=== PATIENT | female | born 1965 | race Caucasian/White ===

== ENCOUNTER → 2019-12-31 09:25 | Outpatient (CLI) | payer OTHER, SELFPAY ==
--- NOTE | ~2019-12-31 | DEXA_ITS ---
Bone Density Report Name: Molly Rodriguez Age: 54 Sex: Female Ethnicity: White Date of : 1965 Indication: osteopenia; monitoring treatment; postmenopausal Referring Provider: Griselda Montelongo Study: Bone densitometry was performed. Exam Date: December 31, 2019 Accession number: [id number] Bone Density: Region BMD T-score Z-score Classification AP Spine (L1-L4) 0.966 -0.7 0.4 Normal Femoral Neck (Left) 0.692 -1.4 -0.3 Osteopenia Total Hip (Left) 0.762 -1.5 -0.7 Osteopenia Femoral Neck (Right) 0.704 -1.3 -0.2 Osteopenia Total Hip (Right) 0.782 -1.3 -0.6 Osteopenia Total Hip Mean 0.772 -1.4 -0.7 Osteopenia World Health Organization criteria for BMD impression classify patients as: Normal (T-score at or above -1.0), Osteopenia (T-score between -1.0 and -2.5), or Osteoporosis (T-score at or below -2.5). 10-year Fracture Risk: FRAX not reported because: Treated for osteoporosis Previous Exams: Region Exam Age BMD T-score BMD Change BMD Change Date g/cm2 vs Baseline vs Previous AP Spine(L1-L4) 12/31/2019 54 0.966 -0.7 0.028* -0.004 12/26/2017 52 0.971 -0.7 0.032* 0.032* 10/20/2015 50 0.938 -1.0 Total Hip(Left) 12/31/2019 54 0.762 -1.5 0.017 0.013 12/26/2017 52 0.749 -1.6 0.004 0.004 10/20/2015 50 0.745 -1.6 Total Hip(Right) 12/31/2019 54 0.782 -1.3 0.010 0.008 12/26/2017 52 0.774 -1.4 0.002 0.002 10/20/2015 50 0.772 -1.4 *Denotes significance at 95% confidence level, LSC for AP Spine = 0.022 g/cm2, LSC for Total Hip = 0.027 g/cm2 Clinical Information Provided by Patient: Is being treated for osteoporosis Has used the following medications: HRT (i.e. estrogen/hormone therapy), Vitamin D, Calcium Patient maximum height was 69 Menopause Age: 46 Drinks caffeinated beverages Onset of menses at age 14 Number of children 2 Impression: The patient has low bone mass, based on the Left Total Hip T-score. No significant bone loss was observed. Discussion: PATIENT UNDER TREATMENT WITH NO SIGNIFICANT BMD LOSS SINCE LAST EXAM. In an untreated patient, BMD typically declines with age. A lack of decline or gain is usually a sign that treatment is efficacious and fracture risk is reduced. It is important to ask patients whether they are taking their medications and to encourage continued and appropriate compliance
== END ==
PROVIDERS: Visit Provider Student in an Organized Health Care Education/Training Program
DX: Z78.0 Asymptomatic menopausal state (principal); M85.89 Other specified disorders of bone density and structure, multiple sites
CPT/HCPCS: 77080

== ENCOUNTER → 2021-02-28 13:07 | Outpatient (CLI) | payer OTHER, SELFPAY ==
--- NOTE | ~2021-02-28 | US_ITS ---
EXAMINATION: US pelvic complete w TV DATE: 02/28/2021 14:12 INDICATION: Pelvic pain Comparison:No prior studies for comparison. TECHNIQUE: Multiple transabdominal and endovaginal sonographic images of the pelvis performed. FINDINGS: The uterus measures 5.9 x 3.5 x 3.6 cm. There are uterine fibroids, largest posteriorly marge suring 1.3 cm maximum dimension. Uterus is retroflexed. The endometrial complex measures 6 mm. The right ovary measures 1.3 x 0.7 x 0.9 cm and the left ovary measures 2.8 x 1.7 x 0.6 cm. There ar e small follicles in each ovary. Normal doppler signal in both ovaries. There is no free fluid in the pelvis. There are no abnormal masses seen on either side. IMPRESSION: 1. Uterine fibroids, largest measuring up to 1.3 cm. Reviewed, dictated and finalized at location A. CY VALUE CALCULATOR
== END ==
PROVIDERS: Visit Provider Student in an Organized Health Care Education/Training Program
DX: R10.2 Pelvic and perineal pain (principal); Z79.810 Long term (current) use of selective estrogen receptor modulators (SERMs); D25.9 Leiomyoma of uterus, unspecified
CPT/HCPCS: 76830; 76856

== ENCOUNTER → 2021-11-14 13:31 | Outpatient (CLI) | payer OTHER, SELFPAY ==
--- NOTE | ~2021-11-14 | US_ITS ---
EXAMINATION: US pelvic complete w TV DATE: 11/14/2021 14:05 INDICATION: Uterine fibroids. Comparison:Ultrasound dated 02/28/2021 TECHNIQUE: Multiple transabdominal and endovaginal sonographic images of the pelvis performed. FINDINGS: The uterus measures 5.4 x 3.4 x 3.5 cm. There are small uterine fibroids measuring up to 8 mm at the fundus measuring up to 1.6 cm posteriorly. The endometrial complex measures 3.8 mm. The ovaries are not visualized, likely atrophic. There is no free fluid in the pelvis. There are no abnormal masses seen on either side. IMPRESSION: 1. Small uterine fibroids, largest located posteriorly measuring up to 1.6 cm. Reviewed, dictated and finalized at location A.
== END ==
PROVIDERS: PCP Student in an Organized Health Care Education/Training Program; Visit Provider Student in an Organized Health Care Education/Training Program
DX: D25.9 Leiomyoma of uterus, unspecified (principal)
CPT/HCPCS: 76830; 76856

== ENCOUNTER → 2023-03-28 14:14 | Outpatient (CLI) | payer OTHER, SELFPAY ==
--- NOTE | ~2023-03-28 | US_ITS ---
EXAMINATION: US thyroid DATE: 03/28/2023 14:33 INDICATION: Nontoxic single thyroid nodule. TECHNIQUE: Multiple ultrasound images of the thyroid were obtained. COMPARISON: None. FINDINGS: The right thyroid lobe measures 5.2 x 1.2 x 1.3 cm. The left thyroid lobe measures 5.0 x 1.2 x 2.1 c m. The thyroid demonstrates heterogeneous echogenicity. In the left thyroid lobe, there is a 3.3 cm solid, hypoechoic more than tall nodule with smooth margin without echogenic foci (TI-RADS TR4). In t he left thyroid lobe, there is a 10 mm solid, isoechoic nodule with peripheral calcifications (TR4). In the right thyroid lobe, there is a 10 mm solid, hypoechoic, wider than tall nodule with peripheral calcifications and ill-defined margin (TR4). IMPRESSION: 1. Multinodular goiter. Ultrasound-guided fine-needle aspiration of the 3.3 cm left thyroid nodule is recommended. Reviewed, dictated and finalized at location E. CLEANER
== END ==
PROVIDERS: PCP Registered Nurse; Visit Provider Registered Nurse
DX: E04.2 Nontoxic multinodular goiter (principal)
CPT/HCPCS: 76536

== ENCOUNTER 2023-09-02 13:09 | Outpatient (CLI) | payer OTHER, SELFPAY ==
--- NOTE | ~2023-09-02 | DEXA_ITS ---
Bone Density Report Name: PRIMITIVO SCHWARTZ Age: 58 Sex: Female Ethnicity: White Date of : 1965 Indication: osteopenia; monitoring treatment; cancer; postmenopausal Referring Provider: CHERYL, DENICE Dubon Study: Bone densitometry was performed. Exam Date: September 02, 2023 Accession number: [id number] Bone Density: Region BMD T-score Z-score Classification AP Spine (L1-L4) 0.962 -0.8 0.6 Normal Femoral Neck (Left) 0.647 -1.8 -0.6 Osteopenia Total Hip (Left) 0.697 -2.0 -1.1 Osteopenia Femoral Neck (Right) 0.665 -1.7 -0.4 Osteopenia Total Hip (Right) 0.728 -1.8 -0.8 Osteopenia Total Hip Mean 0.713 -1.9 -1.0 Osteopenia World Health Organization criteria for BMD impression classify patients as: Normal (T-score at or above -1.0), Osteopenia (T-score between -1.0 and -2.5), or Osteoporosis (T-score at or below -2.5). 10-year Fracture Risk: FRAX not reported because: Treated for osteoporosis Previous Exams: Region Exam Age BMD T-score BMD Change BMD Change Date g/cm2 vs Baseline vs Previous AP Spine(L1-L4) 09/02/2023 58 0.962 -0.8 0.024* -0.004 12/31/2019 54 0.966 -0.7 0.028* -0.004 12/26/2017 52 0.971 -0.7 0.032* 0.032* 10/20/2015 50 0.938 -1.0 Total Hip(Left) 09/02/2023 58 0.697 -2.0 -0.048* -0.065* 12/31/2019 54 0.762 -1.5 0.017 0.013 12/26/2017 52 0.749 -1.6 0.004 0.004 10/20/2015 50 0.745 -1.6 Total Hip(Right) 09/02/2023 58 0.728 -1.8 -0.043* -0.054* 12/31/2019 54 0.782 -1.3 0.010 0.008 12/26/2017 52 0.774 -1.4 0.002 0.002 10/20/2015 50 0.772 -1.4 *Denotes significance at 95% confidence level, LSC for AP Spine = 0.022 g/cm2, LSC for Total Hip = 0.027 g/cm2 Clinical Information Provided by Patient: Is being treated for osteoporosis Has used the following medications: Vitamin D, Calcium Has the following medical conditions: Cancer, breast cancer 2020, tamoxifen Patient maximum height was 69 Menopause Age: 46 Drinks caffeinated beverages Onset of menses at age 14 Number of children 2 Impression: The patient has low bone mass, based on the Left Total Hip T-score. The BMD for the Total Hip(Left) decreased, changing by -0.065 since the last DXA exam. The BMD for the Total Hip(Right) decreased, changing by -0.054 since the last DXA exam
== END 2023-09-02 13:10 ==
LOC: MICIMG 13:10
PROVIDERS: PCP Registered Nurse; Visit Provider Registered Nurse
DX: Z78.0 Asymptomatic menopausal state (principal); M85.852 Other specified disorders of bone density and structure, left thigh; M85.851 Other specified disorders of bone density and structure, right thigh
CPT/HCPCS: 77080

== ENCOUNTER 2024-05-28 13:30 | Outpatient (RCR) | payer OTHER, SELFPAY ==
--- NOTE | 2024-05-07 14:35 | OPREHPOC ---
Outpatient Therapy Plan of Care This is a Multidisciplinary Plan of Care that may contain components documented by all disciplines (PT, OT, and ST.) PT Problem 1 PT Problem #1 Knowledge Deficit PT Goal 1 Goal / Goal Update 1. Patient will perform independent HEP 2. Patient will verbalize urge suppression strategies Target Visit 3 PT Problem 2 PT Problem #2 Impaired Strength PT Goal 1 Goal / Goal Update 1. Improve pelvic floor strength to 3/5 to reduce incontinence 2. Improve pelvic floor endurance to 10 seconds to reduce incontinence Target Visit 6 PT Problem 3 PT Problem #3 Impaired Functional ADLs PT Goal 1 Goal / Goal Update 1. Patient will report incontinence no more than 1 time in a 2 week period 2. Patient will void no more than 8 times in a 24 hour period Target Visit 6
--- NOTE | 2024-05-07 14:36 | PTOPEVAL1 ---
Assessment and note entered by Elinor Nam DPT Evaluation Information Assessment Status Evaluation ICD-10 Condition Codes (PT) Weakness R53.1,Urge incontinence N39.41 Subjective Information Pt reports intermittent urge incontinence. Has noticed stress incontinence but not recently. Incontinence is a couple times a week, small volume and sometimes needs to change clothes. Has not been wearing pads or liners regularly but has in the past. Voids less than 10 times a day and sometimes once at night. Can hold urge to void up to 30 minutes depending on fluid intake. Denies pain with urination. BM 4-5 times in a week, denies pain or fecal incontinence. Denies history of pelvic pain. No INSPECTOR TYPE or b/b issues. Two pregnancies and vaginal deliveries, tearing with both. Pt has been diagnosed with osteopenia. Diagnosed with breast cancer in November of 2020, still taking tamoxafin. Patient goal: figure out what I need to do to reduce incontinence Return to MD scheduled for 2025. Reported Pain Level Pain Score 0: Self Report Plan of Care Interventions Manual Therapy,Neuro Re-education,Patient/ Caregiver Education,Therapeutic Activities, Therapeutic Exercise PT Services Indicated Yes Treatment Frequency and 1 time a week for 6 visits Duration These treatments will address the objective and functional deficits as defined above. The patient will be advanced safely and appropriately in order for the patient to progress towards his/her prior level of function. Additional exercises will be introduced and as well as a comprehensive home exercise program upon discharge, if needed, ?to ensure carryover of functional gains achieved in the clinic. This treatment plan has been reviewed and agreement upon by the patient.
--- NOTE | 2024-06-12 10:55 | PTOPDC ---
Assessment and note entered by Elinor Nam DPT Evaluation Information Assessment Status Discharge - Pt Not Present ICD-10 Condition Codes (PT) Weakness R53.1,Urge incontinence N39.41 Subjective Information - Assessment PT Clinical Summary Patient is self discharging from therapy at this time. Plan of Care PT Services Indicated No
== END 2024-06-12 15:56 | disposition home or self-care (01) ==
LOC: ANHPT 13:30
PROVIDERS: PCP Registered Nurse; Visit Provider Nurse Practitioner Obstetrics & Gynecology
DX: R53.1 Weakness (principal); N39.41 Urge incontinence
CPT/HCPCS: 97112; 97161; 97530